=== PATIENT | male | born 1980 | race Caucasian/White ===

== ENCOUNTER 2016-10-18 20:57 | Emergency (ER) | payer SELFPAY ==
[2016-10-18] MEDS ORDERED: Ketorolac 10 MG Tab PO ONE (21:12)
--- NOTE | 2016-10-18 21:19 | EDM.PDOC ---
ED HPI GENERAL MEDICAL PROBLEM - General Chief Complaint: Neck Problem Stated Complaint: NECK PAIN Time Seen by Provider: 10/18/16 21:10 Source of Information: Reports: Patient History Limitations: Reports: No Limitations - History of Present Illness INITIAL COMMENTS - FREE TEXT/NARRATIVE: History of present illness: [35-year-old male comes in complaining of neck pain. Patient indicates he thinks he slept on his neck wrong or something and it became more painful over the last 24 hours.] Review of systems: As per history of present illness and below otherwise all systems reviewed and negative. Past medical history: As per history of present illness and as reviewed below otherwise noncontributory. Surgical history: As per history of present illness and as reviewed below otherwise noncontributory. Social history: No reported history of drug or alcohol abuse. Family history: As per history of present illness and as reviewed below otherwise noncontributory. Physical exam: HEENT: Atraumatic, normocephalic, pupils reactive, negative for conjunctival pallor or scleral icterus, mucous membranes moist, throat clear, sternal cleidomastoid tightness and tenderness as well as tight levator scapula on the left with exquisite tenderness, trachea midline. Lungs: Clear to auscultation, breath sounds equal bilaterally, chest nontender. Heart: S1S2, regular, negative for clicks, rubs, or JVD. Abdomen: Soft, nondistended, nontender. Negative for masses or hepatosplenomegaly. Negative for costovertebral tenderness. Pelvis: Stable nontender. Genitourinary: Deferred. Rectal: Deferred. Extremities: Atraumatic, negative for cords or calf pain. Neurovascular unremarkable. Neuro: Awake, alert, oriented. Cranial nerves II through XII unremarkable. Cerebellum unremarkable. Motor and sensory unremarkable throughout. Exam nonfocal. Diagnostics: [] Therapeutics: [] Impression: [Neck pain] Plan: [Norflex and Toradol here prescriptions for home] Definitive disposition and diagnosis as appropriate pending reevaluation and review of above. neck pain Pain Score (Numeric/FACES): 8 - Related Data Allergies Allergy/AdvReac Type Severity Reaction Status Date / Time No Known Allergies Allergy Verified 10/18/16 21:08 Home Meds: Home Meds Meloxicam 7.5 mg PO BID #30 tablet 10/18/16 [Rx] Orphenadrine [Norflex] 100 mg PO BID #28 tab.er 10/18/16 [Rx] ED ROS GENERAL - Review of Systems Review Of Systems: See Below (See history of present illness) ED EXAM, UPPER BACK/NECK PAIN - Physical Exam Exam: See Below (See history of present illness) Course - Vital Signs Last Recorded V/S: Last Vital Signs Temp 36.4 C 10/18/16 21:09 Pulse 88 10/18/16 21:09 Resp 18 10/18/16 21:09 BP 154/105 H 10/18/16 21:09 Pulse Ox 96 10/18/16 21:09 - Orders/Labs/Meds Orders: Active Orders 24 hr Category Date Time Status Orphenadrine [Norflex] Med 10/18/16 21:15 Once 60 mg IM ONETIME ONE Medication Orders Orphenadrine Citrate (Norflex) 60 mg IM ONETIME ONE Stop: 10/18/16 21:16 Meds: Medications Generic Name Dose Route Start Last Admin Trade Name Freq PRN Reason Stop Dose Admin Orphenadrine Citrate 60 mg 10/18/16 21:15 Norflex IM 10/18/16 21:16 ONETIME ONE Discontinued Medications Generic Name Dose Route Start Last Admin Trade Name Freq PRN Reason Stop Dose Admin Ketorolac Tromethamine 10 mg 10/18/16 21:12 Toradol PO 10/18/16 21:13 ONETIME ONE Departure - Departure Time of Disposition: 21:18 Disposition: Home, Self-Care 01 Condition: Good Clinical Impression: Neck pain - Discharge Information Prescriptions: Meloxicam 7.5 mg PO BID #30 tablet Orphenadrine [Norflex] 100 mg PO BID #28 tab.er Forms: ED Department Discharge Additional Instructions: The following information is given to patients seen in the emergency department who are being discharged to home. This information is to outline your options for follow-up care. We provide all patients seen in our emergency department with a follow-up referral. The need for follow-up, as well as the timing and circumstances, are variable depending upon the specifics of your emergency department visit. If you don't have a primary care physician on staff, we will provide you with a referral. We always advise you to contact your personal physician following an emergency department visit to inform them of the circumstance of the visit and for follow-up with them and/or the need for any referrals to a consulting specialist. The emergency department will also refer you to a specialist when appropriate. This referral assures that you have the opportunity for follow-up care with a specialist. All of these measure are taken in an effort to provide you with optimal care, which includes your follow-up. Under all circumstances we always encourage you to contact your private physician who remains a resource for coordinating your care. When calling for follow-up care, please make the office aware that this follow-up is from your recent emergency room visit. If for any reason you are refused follow-up, please contact the Emergency Department at and asked to speak to the emergency department charge nurse. Take medication as directed Follow-up with PCP 1-2 days Return to ED as needed as discussed Primary Care [address] [place] [id number] - My Orders Last 24 Hours: My Active Orders 10/18/16 21:15 Orphenadrine [Norflex] 60 mg IM ONETIME ONE - Assessment/Plan Last 24 Hours: My Active Orders 10/18/16 21:15 Orphenadrine [Norflex] 60 mg IM ONETIME ONE
[2016-10-18 21:43] VITALS: BP 146/85
== END 2016-10-18 21:41 | disposition home or self-care (01) ==
LOC: MW.ED 20:57
DX: M54.2 Cervicalgia (principal)
CPT/HCPCS: 96372; 99283; A9270; J2360

== ENCOUNTER 2017-05-18 08:07 | Emergency (ER) | payer OTHER ==
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
[2017-05-18] MEDS ORDERED: Albuterol/Ipratropium 3.0-0.5 MG/3 ML Neb Soln NEB ONE (08:34)
[2017-05-18] MEDS ORDERED: Ibuprofen 600 MG Tab PO ONE (08:37)
[2017-05-18] MEDS ORDERED: Sodium Chloride 0.9% 2.5 ML Syringe FLUSH PRN (08:38)
[2017-05-18] MEDS ORDERED: Sodium Chloride 0.9% 10 ML Syringe FLUSH PRN (08:38)
[2017-05-18] MEDS ORDERED: Ondansetron 4 MG Tab.DIS PO ONE (08:40)
[2017-05-18 09:46] LABS: CHLORIDE,CL 103 mmol/L (98-107); SODIUM,NA 139 mmol/L (136-148)
--- NOTE | 2017-05-18 10:05 | CR ---
EXAMINATION: Two-view chest (PA and Lateral views). HISTORY: Shortness of breath. FINDINGS: The trachea is midline. The cardiomediastinal silhouette is within normal limits. No pulmonary infilt rates, effusions or pneumothorax. Osseous structures appear unremarkable. IMPRESSION: No acute cardiopulmonary process.
[2017-05-18 10:37] VITALS: BP 136/89
== END 2017-05-18 10:50 | disposition home or self-care (01) ==
LOC: MW.ED 08:07
DX: J10.1 Influenza due to other identified influenza virus with other respiratory manifestations (principal); F17.210 Nicotine dependence, cigarettes, uncomplicated
CPT/HCPCS: 36415; 71046; 80053; 85025; 87040; 87804; 99284; A9270; 99283

== ENCOUNTER 2017-06-06 12:10 | Observation (INO) | payer OTHER ==
[2017-06-06] MEDS ORDERED: Sodium Chloride 0.9% 1,000 ML IV ONE (12:48)
[2017-06-06] MEDS ORDERED: Ketorolac 30 MG/ML SDV IVPUSH ONE (12:59)
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
[2017-06-06 13:53] LABS: CHLORIDE,CL 98 mmol/L (98-107); SODIUM,NA 134 mmol/L (136-148)
[2017-06-06] MEDS ORDERED: Iopamidol 755 MG/ML 200 ML Multipack Bottle IVPUSH STA (14:11)
--- NOTE | 2017-06-06 14:28 | CT ---
CT of the abdomen and pelvis with contrast. HISTORY: Abscess TECHNIQUE: Axial CT images were obtained of the abdomen and pelvis following administration of 100 mL of Isovue-370 in the right antecubital fossa without complication. Coronal and sagittal reconstructi ons obtained. FINDINGS: The lung bases are clear, no pleural effusion. Mild atelectasis within the right middle lobe. The liver, spleen, adrenal glands, and pancreas appear normal. The gallbladder is normal. No bulky re troperitoneal lymphadenopathy or abdominal ascites. The kidneys enhance and function symmetrically without evidence of obstructive uropathy. The visualized large and small bowel are normal in caliber without evidence of obstruction. No focal pericolonic formation or stranding. The appendix is enlarged measuring up to 1.5 cm in diameter. Ther e is mild enhancement of the distal appendiceal scott. No significant periappendiceal stranding or fl uid noted. No bulky pelvic lymphadenopathy or free pelvic fluid. Urinary bladder is normal. There is a tubular shaped abscess along the right gluteal fold measuring 4.2 x 2 cm extending to the rectum. Overlying cellulitis is noted. IMPRESSION: 1. There is a 4.2 x 2 cm right perirectal abscess. Mild overlying edema/cellulitis. 2. The appendix is enlarged and enhancing without significant periappendiceal stranding. Correlate cl inically for appendicitis.
[2017-06-06] MEDS ORDERED: metroNIDAZOLE/Normal Saline 500 MG in Premix Bag 1 BAG IV ONE ×2 (15:04→16:25)
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
[2017-06-06] MEDS ORDERED: Lactated Ringers 1,000 ML IV SCH ×2 (17:30→19:30)
[2017-06-06] MEDS: Piperacillin/Tazobactam 3.375 GM in Sodium Chloride 0.9% 50 ML IV SCH ×2 (17:40→23:08)
[2017-06-06] MEDS ORDERED: Morphine 4 MG/ML Syringe IVPUSH PRN (18:05)
[2017-06-06] MEDS ORDERED: Acetaminophen 325 MG Tab PO PRN (18:06)
[2017-06-06] MEDS ORDERED: Ondansetron 4 MG/2 ML SDV IVPUSH PRN (18:06)
[2017-06-06] MEDS ORDERED: Propofol 200 MG/20 ML SDV ONE (18:07)
[2017-06-06] MEDS ORDERED: fentaNYL 250 MCG/5 ML SDV ONE (18:08)
[2017-06-06] MEDS ORDERED: Lidocaine 2% 5 ML SDV ONE (18:09)
[2017-06-06] MEDS ORDERED: diphenhydrAMINE 50 MG/ML SDV ONE (18:36)
[2017-06-06] MEDS ORDERED: Ondansetron 4 MG/2 ML SDV ONE (18:36)
[2017-06-06] MEDS ORDERED: fentaNYL 100 MCG/2 ML SDV ONE (18:52)
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
[2017-06-06] MEDS ORDERED: Polyethylene Glycol 3350 Powder 17 GM Packet PO PRN (19:16)
[2017-06-06] MEDS ORDERED: Famotidine 20 MG Tab PO PRN (19:16)
[2017-06-06] MEDS ORDERED: Promethazine 25 MG/ML SDV IM PRN (19:16)
--- NOTE | 2017-06-06 19:18 | PCM.OPNOTE ---
- General Post-Op/Procedure Note Date of Surgery/Procedure: 06/06/17 Operative Procedure(s): Incision and drainage of right perirectal abscess Pre Op Diagnosis: Right perirectal abscess Post-Op Diagnosis: Same Anesthesia Technique: General LMA (ASA IIE) Primary Surgeon: Sridhar Zamora Grip Boss: Gordon Wallace Fluid Replacement, Intraop: 400 EBL in mLs: 75 Surgical Drain/Tube Type: [place] Condition: Stable Free Text/Narrative:: Dictation [id number] CPT CODE 31193
[2017-06-06] MEDS: fentaNYL 100 MCG/2 ML SDV IVPUSH PRN ×4 (19:48→20:26)
[2017-06-06] MEDS ORDERED: Albuterol 0.083% 2.5 MG/3 ML Neb Soln NEB ONE (19:50)
[2017-06-06] MEDS ORDERED: Albuterol 0.5% 2.5 MG/0.5 ML Neb Soln NEB ONE (20:00)
--- NOTE | 2017-06-06 20:21 | PCM.POSTAN ---
POST ANESTHESIA ASSESSMENT - MENTAL STATUS Mental Status: Alert, Oriented - VITAL SIGNS Pulse Rate: 104 SaO2: 93 Resp Rate: 20 Blood Pressure: 126/64 Temperature: 37 C - RESPIRATORY Respiratory Status: Respiratory Rate WNL, Airway Patent, O2 Saturation Stable, Supplemental Oxygen (albuterol neb in pacu), Wheezing (PATRICK. Pt coughing frequently in pacu) - CARDIOVASCULAR CV Status: Pulse Rate WNL, Blood Pressure Stable - GASTROINTESTINAL GI Status: No Symptoms - PAIN Pain Score: 5 - POST OP HYDRATION Hydration Status: Adequate & Stable
--- NOTE | 2017-06-06 20:47 | OR ---
SURGEON: Sridhar Zamora M.D. DATE OF PROCEDURE: 06/06/2017 OPERATION PERFORMED: Incision and drainage of right perirectal abscess. MANAGER IT TRAINING: Dr. Wallace, PGY3. ANESTHESIA: General LMA. ASA CLASSIFICATION: IIE. PREOPERATIVE DIAGNOSIS: Right perirectal abscess. POSTOPERATIVE DIAGNOSIS: Right perirectal abscess. ESTIMATED BLOOD LOSS: 75 mL. INTRAOPERATIVE FLUID REPLACEMENT: 400 mL of crystalloid. DESCRIPTION OF PROCEDURE: The patient was taken to the operating room and placed in the operating table in the supine position. Time-out was called for appropriate identification of the patient and procedure. Following satisfactory attainment of general anesthesia with placement of an LMA, the patient was now placed in the [facility] and the perineum exposed. The surgical site was prepped with Betadine solution and paint. The skin incision was made directly over the fluctuant mass on the right perirectal region. Dissection was carried into the subcutaneous tissues ultimately entering the abscess cavity. Aerobic and anaerobic cultures were obtained and sent for culture, sensitivity, and Gram stain. The wound was irrigated with several 100 mL of sterile saline solution. All fluid was aspirated. Bleeding was controlled with the use of electrocautery. Once the wound had been satisfactorily irrigated, all loculations broken up. A Adrianna drains were placed into the abscess cavities and secured with 2-0 nylon sutures. The wound was then dressed with fluffs and mesh panties. The patient tolerated the procedure well. Following emergence from anesthesia and extubation, he was taken to recovery room in satisfactory condition. WON / ANIA /[id number]
[2017-06-06] MEDS: Acetaminophen/HYDROcodone 325-5 MG Tab PO PRN (21:22)
[2017-06-06] MEDS: Ibuprofen 400 MG Tab PO PRN (23:36)
[2017-06-07] MEDS: Morphine 4 MG/ML Syringe IVPUSH PRN ×2 (00:57→06:13)
[2017-06-07] MEDS: Piperacillin/Tazobactam 3.375 GM in Sodium Chloride 0.9% 50 ML IV SCH ×2 (05:49→12:31)
[2017-06-07 06:17] LABS: CHLORIDE,CL 105 mmol/L (98-107); SODIUM,NA 138 mmol/L (136-148)
--- NOTE | 2017-06-07 08:11 | PCM.SURGPN ---
<Gordon Wallace - Last Filed: 06/07/17 08:06> - General Info Date of Service: 06/07/17 Date of Surgery/Procedure: 06/06/17 POD#: 1 Post-Op Diagnosis: perirectal abscess Functional Status: Reports: Pain Controlled - Review of Systems General: Reports: No Symptoms. Denies: Fever, Chills HEENT: Reports: No Symptoms Pulmonary: Reports: Cough (had small bile vomitus postop and coughed alot overnight. States he cleared alot of sputum with coughing and is doing well this morning. ), Sputum. Denies: Shortness of Breath, Pleuritic Chest Pain, Wheezing Cardiovascular: Reports: No Symptoms Gastrointestinal: Reports: No Symptoms Genitourinary: Reports: No Symptoms Musculoskeletal: Reports: No Symptoms Skin: Reports: Other (wound is sore, but pain is controlled adequately. ) Neurological: Reports: No Symptoms Psychiatric: Reports: No Symptoms - Patient Data Vitals - Most Recent: Last Vital Signs Temp 36.1 C 06/07/17 04:13 Pulse 70 06/07/17 04:13 Resp 18 06/07/17 04:13 BP 104/57 L 06/07/17 04:13 Pulse Ox 99 06/07/17 04:13 Weight - Most Recent: 261 lb 14.546 oz I&O - Last 24 Hours: Intake & Output 06/06/17 06/07/17 06/07/17 22:59 06:59 14:59 Intake Total 1300 1340 Output Total 600 Balance 1300 740 Lab Results Last 24 Hrs: Laboratory Results - last 24 hr 06/06/17 06/06/17 06/07/17 Range/Units 13:05 13:05 05:05 WBC 12.85 H (4.0-11.0) K/uL RBC 4.41 L (4.50-5.90) M/uL Hgb 14.0 (13.0-17.0) g/dL Hct 39.7 (38.0-50.0) % MCV 90.0 (80.0-98.0) fL MCH 31.7 (27.0-32.0) pg MCHC 35.3 (31.0-37.0) g/dL RDW Std Deviation 41.5 (28.0-62.0) fl RDW Coeff of Nuvia 13 (11.0-15.0) % Plt Count 318 (150-400) K/uL MPV 9.40 (7.40-12.00) fL Add Manual Diff YES Neutrophils % (Manual) 73 (48.0-80.0) % Band Neutrophils % 1 % Lymphocytes % (Manual) 20 (16.0-40.0) % Monocytes % (Manual) 5 (0.0-15.0) % Eosinophils % (Manual) 1 (0.0-7.0) % Nucleated RBC % 0.0 /100WBC Absolute Seg Neuts 9.4 H (1.4-5.7) Band Neutrophils # 0.1 Lymphocytes # (Manual) 2.6 H (0.6-2.4) Monocytes # (Manual) 0.6 (0.0-0.8) Eosinophils # (Manual) 0.1 (0.0-0.7) Nucleated RBCs # 0 K/uL Sodium 134 L 138 (136-148) mmol/L Potassium 3.5 4.1 (3.5-5.1) mmol/L Chloride 98 105 (98-107) mmol/L Carbon Dioxide 28.6 25.7 (21.0-32.0) mmol/L BUN 8 10 (7.0-18.0) mg/dL Creatinine 1.0 1.0 (0.8-1.3) mg/dL Est Cr Clr Drug Dosing 114.24 114.24 mL/min Estimated GFR (MDRD) > 60.0 > 60.0 ml/min Glucose 98 101 (74-106) mg/dL Calcium 8.6 8.2 L (8.5-10.1) mg/dL Total Bilirubin 0.6 (0.2-1.0) mg/dL AST 16 (15-37) IU/L ALT 20 (14-63) IU/L Alkaline Phosphatase 69 (46-116) U/L Total Protein 7.7 (6.4-8.2) g/dL Albumin 3.5 (3.4-5.0) g/dL Globulin 4.2 H (2.0-3.5) g/dL Albumin/Globulin Ratio 0.8 L (1.3-2.8) Mello Results Last 24 Hrs: Microbiology 06/06/17 18:52 Gram Stain - Preliminary Perirectal Med Orders - Current: Current Medications Acetaminophen (Tylenol) 650 mg PO Q4H PRN PRN Reason: Pain Last Admin: 06/06/17 22:28 Dose: 650 mg Hydrocodone Bitart/Acetaminophen ([place] 325-5 Mg) 1 - 2 tab PO Q4H PRN PRN Reason: Pain Last Admin: 06/06/17 21:22 Dose: 2 tab Famotidine (Pepcid) 20 mg PO BID PRN PRN Reason: Heartburn Last Admin: 06/06/17 22:28 Dose: 20 mg Lactated Ringer's (Ringers, Lactated) 1,000 mls @ 100 mls/hr IV ASDIRECTED [facility] Last Admin: 06/06/17 17:40 Dose: 100 mls/hr Piperacillin Sod/Tazobactam (Sod 3.375 gm/ Sodium Chloride) 50 mls @ 100 mls/ hr IV Q6H [facility] Last Admin: 06/07/17 05:49 Dose: 100 mls/hr Vancomycin HCl 1,500 mg/ (Sodium Chloride) 500 mls @ 250 mls/hr IV Q8H [facility] Last Admin: 06/07/17 07:31 Dose: Not Given Lactated Ringer's (Ringers, Lactated) 1,000 mls @ 125 mls/hr IV ASDIRECTED [facility] Ibuprofen (Motrin) 400 mg PO Q6H PRN PRN Reason: Pain Last Admin: 06/06/17 23:36 Dose: 400 mg Morphine Sulfate (Morphine) 2 mg IVPUSH Q2H PRN PRN Reason: severe pain (7-10/10) Last Admin: 06/07/17 06:13 Dose: 2 mg Ondansetron HCl (Zofran) 4 mg IVPUSH Q4H PRN PRN Reason: Nausea Polyethylene Glycol (Miralax) 17 gm PO DAILY PRN PRN Reason: Constipation Promethazine HCl (Phenergan) 25 mg IM Q6H PRN PRN Reason: Nausea Vancomycin HCl (Pharmacy To Dose - Vancomycin) 1 dose .XX ASDIRECTED [facility] Discontinued Medications Albuterol (Proventil) 2.5 mg NEB QIDRT ONE Stop: 06/06/17 20:01 Last Admin: 06/06/17 20:59 Dose: Not Given Albuterol (Proventil Neb Soln) 2.5 mg NEB ONETIME ONE Stop: 06/06/17 19:51 Last Admin: 06/06/17 20:08 Dose: 2.5 mg Diphenhydramine HCl (Benadryl) Confirm Administered Dose 50 mg .ROUTE .STK-MED ONE Stop: 06/06/17 18:37 Fentanyl (Sublimaze) Confirm Administered Dose 250 mcg .ROUTE .STK-MED ONE Stop: 06/06/17 18:09 Fentanyl (Sublimaze) Confirm Administered Dose 100 mcg .ROUTE .STK-MED ONE Stop: 06/06/17 18:53 Fentanyl (Sublimaze) 50 mcg IVPUSH Q5M PRN PRN Reason: Pain (severe 7-10) Stop: 06/06/17 21:00 Last Admin: 06/06/17 20:26 Dose: 50 mcg Sodium Chloride (Normal Saline) 1,000 mls @ 999 mls/hr IV STAT ONE Stop: 06/06/17 13:48 Last Admin: 06/06/17 13:05 Dose: 999 mls/hr Metronidazole 500 mg/ Premix 100 mls @ 100 mls/hr IV ONETIME ONE Stop: 06/06/17 16:03 Last Admin: 06/06/17 17:36 Dose: Not Given Vancomycin HCl 1 gm/ Sodium (Chloride) 250 mls @ 250 mls/hr IV ONETIME ONE Stop: 06/06/17 16:03 Last Admin: 06/06/17 17:36 Dose: Not Given Vancomycin HCl 1,000 mg/ (Dextrose/Water) 250 mls @ 167 mls/hr IV ONETIME ONE Stop: 06/06/17 17:51 Last Admin: 06/06/17 17:36 Dose: Not Given Metronidazole 500 mg/ Premix 100 mls @ 100 mls/hr IV ONETIME ONE Stop: 06/06/17 17:24 Last Admin: 06/06/17 17:36 Dose: Not Given Vancomycin HCl 1 gm/ Sodium (Chloride) 250 mls @ 167 mls/hr IV ONETIME ONE Stop: 06/06/17 19:29 Vancomycin HCl 1,500 mg/ (Sodium Chloride) 500 mls @ 250 mls/hr IV Q8H [facility] Last Admin: 06/07/17 03:10 Dose: 250 mls/hr Iopamidol (Isovue Multipack-370 (76%)) 100 ml IVPUSH ONETIME STA Stop: 06/06/17 14:12 Last Admin: 06/06/17 14:17 Dose: 100 ml Ketorolac Tromethamine (Toradol) 30 mg IVPUSH ONETIME ONE Stop: 06/06/17 13:00 Last Admin: 06/06/17 13:09 Dose: 30 mg Lidocaine (Xylocaine-Mpf 2%) Confirm Administered Dose 5 ml .ROUTE .STK-MED ONE Stop: 06/06/17 18:10 Morphine Sulfate (Morphine) 4 mg IVPUSH Q4H PRN PRN Reason: severe pain (7-10/10) Ondansetron HCl (Zofran) Confirm Administered Dose 4 mg .ROUTE .STK-MED ONE Stop: 06/06/17 18:37 Propofol (Diprivan 20 Ml) Confirm Administered Dose 200 mg .ROUTE .STK-MED ONE Stop: 06/06/17 18:08 - Exam Wound/Incisions: Drainage, Erythema Improving, Other ([place] drains in place in right buttock, draining serosanguinous material. Cellulitis/erythema has decreased markedly, as has the induration of the tissue. No purulent drainage noted. Wound is improved and as expected at this point in time. ) General: Alert, Oriented, Cooperative Lungs: Clear to Auscultation, Normal Respiratory Effort Cardiovascular: Regular Rate, Regular Rhythm Extremities: Normal Inspection Skin: Warm, Dry Psy/Mental Status: Alert, Normal Affect, Normal Mood - Problem List & Annotations (1) Perirectal abscess SNOMED Code(s): 72622300 Code(s): K61.1 - RECTAL ABSCESS Status: Resolved Priority: High Current Visit: Yes - Problem List Review Problem List Initiated/Reviewed/Updated: Yes - My Orders Last 24 Hours: Active Orders 24 hr Category Date Time Status Patient Status [ADT] Stat ADT 06/06/17 17:49 Active Bradycardia-Neuroaxis [facility] [RC] ROUTINE Care 06/06/17 18:59 Active Hypertension-Neuroaxis [facility] [RC] ROUTINE Care 06/06/17 18:59 Active Hypotension-Neuroaxis [facility] [RC] ROUTINE Care 06/06/17 18:59 Active Intake and Output [RC] Q12HR Care 06/06/17 17:51 Active May Shower [RC] ASDIRECTED Care 06/06/17 19:16 Active Notify Provider Consults [RC] ASDIRECTED Care 06/06/17 15:46 Active Oxygen Therapy [RC] ASDIRECTED Care 06/06/17 18:59 Active Oxygen Therapy [RC] PRN Care 06/06/17 17:51 Active Oxygen Therapy [RC] PRN Care 06/06/17 19:16 Active RT Aerosol Therapy [RC] ASDIRECTED Care 06/06/17 19:53 Active RT Incentive Spirometry [RC] ASDIRECTED Care 06/06/17 19:40 Active Up ad Aileen [RC] ASDIRECTED Care 06/06/17 17:51 Active Vital Signs [RC] PER UNIT ROUTINE Care 06/06/17 19:16 Active Vital Signs [RC] Q4H Care 06/06/17 17:50 Active Wound Care [RC] ASDIRECTED Care 06/06/17 19:16 Active Consult to Physician [CONS] Stat Cons 06/06/17 15:46 Active Regular Diet [DIET] Diet 06/06/17 Dinner Active BMP [BASIC METABOLIC PANEL,BMP] [CHEM] AM Lab 06/08/17 05:11 Ordered CBC WITH AUTO DIFF [HEME] AM Lab 06/08/17 05:11 Ordered CBC WITH AUTO DIFF [HEME] AM Lab 06/09/17 05:11 Ordered CBC WITH AUTO DIFF [HEME] Routine Lab 06/07/17 05:05 Received CULTURE ANAEROBIC [RM] Routine Lab 06/06/17 18:52 Results CULTURE BLOOD [BC] Stat Lab 06/06/17 13:59 Received CULTURE BLOOD [BC] Stat Lab 06/06/17 14:20 Received CULTURE STOOL + CAMPY+SHIGATOX [RM] Stat Lab 06/06/17 12:48 Ordered CULTURE WOUND [RM] Routine Lab 06/06/17 18:52 Results GRAM STAIN [RM] Routine Lab 06/06/17 18:52 Results VANCOMYCIN TROUGH [CHEM] Routine Lab 06/07/17 17:00 Ordered Acetaminophen [Tylenol] Med 06/06/17 18:06 Active 650 mg PO Q4H PRN Acetaminophen/HYDROcodone [[place] 325-5 MG] Med 06/06/17 18:05 Active 1 - 2 tab PO Q4H PRN Famotidine [Pepcid] Med 06/06/17 19:16 Active 20 mg PO BID PRN Ibuprofen [Motrin] Med 06/06/17 18:06 Active 400 mg PO Q6H PRN Lactated Ringers [Ringers, Lactated] 1,000 ml Med 06/06/17 17:30 Active IV ASDIRECTED Lactated Ringers [Ringers, Lactated] 1,000 ml Med 06/06/17 19:30 Active IV ASDIRECTED Morphine Med 06/06/17 19:26 Active 2 mg IVPUSH Q2H PRN Ondansetron [Zofran] Med 06/06/17 18:06 Active 4 mg IVPUSH Q4H PRN Piperacillin/Tazobactam [Piperacil-Tazobact] 3.375 gm Med 06/06/17 17:30 Active Sodium Chloride 0.9% [Normal Saline] 50 ml IV Q6H Polyethylene Glycol 3350 [MiraLAX] Med 06/06/17 19:16 Active 17 gm PO DAILY PRN Promethazine [Phenergan] Med 06/06/17 19:16 Active 25 mg IM Q6H PRN Vancomycin 1,500 mg Med 06/06/17 18:00 Active Sodium Chloride 0.9% [Normal Saline] 500 ml IV Q8H Vancomycin Pharmacy to Dose [Pharmacy to Dose - Med 06/06/17 17:30 Active Vancomycin] 1 dose .XX ASDIRECTED Blood Culture x2 Reflex Set [OM.PC] Stat Oth 06/06/17 13:21 Ordered Peripheral IV Discontinue [OM.PC] Per Unit Routine Oth 06/06/17 19:21 Ordered Sequential Compression Device [OM.PC] Per Unit Routine Oth 06/06/17 17:51 Ordered Resuscitation Status Routine Resus Stat 06/06/17 17:47 Ordered Medication Orders Acetaminophen (Tylenol) 650 mg PO Q4H PRN PRN Reason: Pain Last Admin: 06/06/17 22:28 Dose: 650 mg Hydrocodone Bitart/Acetaminophen ([place] 325-5 Mg) 1 - 2 tab PO Q4H PRN PRN Reason: Pain Last Admin: 06/06/17 21:22 Dose: 2 tab Famotidine (Pepcid) 20 mg PO BID PRN PRN Reason: Heartburn Last Admin: 06/06/17 22:28 Dose: 20 mg Lactated Ringer's (Ringers, Lactated) 1,000 mls @ 100 mls/hr IV ASDIRECTED [facility] Last Admin: 06/06/17 17:40 Dose: 100 mls/hr Piperacillin Sod/Tazobactam (Sod 3.375 gm/ Sodium Chloride) 50 mls @ 100 mls/ hr IV Q6H [facility] Last Admin: 06/07/17 05:49 Dose: 100 mls/hr Infusion: 06/06/17 23:38 Dose: 100 mls/hr Admin: 06/06/17 23:08 Dose: 100 mls/hr Infusion: 06/06/17 18:10 Dose: 100 mls/hr Admin: 06/06/17 17:40 Dose: 100 mls/hr Vancomycin HCl 1,500 mg/ (Sodium Chloride) 500 mls @ 250 mls/hr IV Q8H [facility] Last Admin: 06/07/17 07:31 Dose: Not Given Admin: 06/06/17 20:58 Dose: Lactated Ringer's (Ringers, Lactated) 1,000 mls @ 125 mls/hr IV ASDIRECTED [facility] Ibuprofen (Motrin) 400 mg PO Q6H PRN PRN Reason: Pain Last Admin: 06/06/17 23:36 Dose: 400 mg Morphine Sulfate (Morphine) 2 mg IVPUSH Q2H PRN PRN Reason: severe pain (7-10/10) Last Admin: 06/07/17 06:13 Dose: 2 mg Admin: 06/07/17 00:57 Dose: 2 mg Ondansetron HCl (Zofran) 4 mg IVPUSH Q4H PRN PRN Reason: Nausea Polyethylene Glycol (Miralax) 17 gm PO DAILY PRN PRN Reason: Constipation Promethazine HCl (Phenergan) 25 mg IM Q6H PRN PRN Reason: Nausea Vancomycin HCl (Pharmacy To Dose - Vancomycin) 1 dose .XX ASDIRECTED [facility] - Assessment Assessment (Free Text/Narrative):: POD #1 s/p I&D of perirectal abscess. Doing very well. No further respiratory issues. Pain is controlled, and wound has improved appropriately. No new issues or concerns at this juncture. - Plan Plan (Free Text/Narrative):: Ok to discharge patient home today from surgical perspective. Recommend 7 days of PO cipro and flagyl, as well as PO pain medication PRN. Follow up with Dr. Zamora in clinic on Monday, 4/3, for wound check and likely drain removal. Patient may shower and/or take Sitz baths, as desired for cleanliness and comfort. Ok to wash gently with mild soap. He may cover his wound with gauze as desired, for drainage, but he may also leave it open to air, if he prefers. <NoahSridhar L - Last Filed: 06/07/17 09:10> - Patient Data Vitals - Most Recent: Last Vital Signs Temp 99.1 F 06/07/17 08:48 Pulse 104 H 06/07/17 08:48 Resp 18 06/07/17 08:48 BP 126/64 06/07/17 08:48 Pulse Ox 93 L 06/07/17 08:00 I&O - Last 24 Hours: Intake & Output 06/06/17 06/07/17 06/07/17 19:59 03:59 11:59 Intake Total 963 168 0250 Output Total 600 Balance 400 950 690 Lab Results Last 24 Hrs: Laboratory Results - last 24 hr 06/06/17 06/06/17 06/07/17 Range/Units 13:05 13:05 05:05 WBC 12.85 H (4.0-11.0) K/uL RBC 4.41 L (4.50-5.90) M/uL Hgb 14.0 (13.0-17.0) g/dL Hct 39.7 (38.0-50.0) % MCV 90.0 (80.0-98.0) fL MCH 31.7 (27.0-32.0) pg MCHC 35.3 (31.0-37.0) g/dL RDW Std Deviation 41.5 (28.0-62.0) fl RDW Coeff of Nuvia 13 (11.0-15.0) % Plt Count 318 (150-400) K/uL MPV 9.40 (7.40-12.00) fL Neut % (Auto) (48.0-80.0) % Lymph % (Auto) (16.0-40.0) % [place] % (Auto) (0.0-15.0) % Eos % (Auto) (0.0-7.0) % Baso % (Auto) (0.0-1.5) % Neut # (Auto) (1.4-5.7) K/uL Lymph # (Auto) (0.6-2.4) K/uL [place] # (Auto) (0.0-0.8) K/uL Eos # (Auto) (0.0-0.7) K/uL Baso # (Auto) (0.0-0.1) K/uL Add Manual Diff YES Neutrophils % (Manual) 73 (48.0-80.0) % Band Neutrophils % 1 % Lymphocytes % (Manual) 20 (16.0-40.0) % Monocytes % (Manual) 5 (0.0-15.0) % Eosinophils % (Manual) 1 (0.0-7.0) % Nucleated RBC % 0.0 /100WBC Absolute Seg Neuts 9.4 H (1.4-5.7) Band Neutrophils # 0.1 Lymphocytes # (Manual) 2.6 H (0.6-2.4) Monocytes # (Manual) 0.6 (0.0-0.8) Eosinophils # (Manual) 0.1 (0.0-0.7) Nucleated RBCs # 0 K/uL Sodium 134 L 138 (136-148) mmol/L Potassium 3.5 4.1 (3.5-5.1) mmol/L Chloride 98 105 (98-107) mmol/L Carbon Dioxide 28.6 25.7 (21.0-32.0) mmol/L BUN 8 10 (7.0-18.0) mg/dL Creatinine 1.0 1.0 (0.8-1.3) mg/dL Est Cr Clr Drug Dosing 114.24 114.24 mL/min Estimated GFR (MDRD) > 60.0 > 60.0 ml/min Glucose 98 101 (74-106) mg/dL Calcium 8.6 8.2 L (8.5-10.1) mg/dL Total Bilirubin 0.6 (0.2-1.0) mg/dL AST 16 (15-37) IU/L ALT 20 (14-63) IU/L Alkaline Phosphatase 69 (46-116) U/L Total Protein 7.7 (6.4-8.2) g/dL Albumin 3.5 (3.4-5.0) g/dL Globulin 4.2 H (2.0-3.5) g/dL Albumin/Globulin Ratio 0.8 L (1.3-2.8) 06/07/17 Range/Units 05:05 WBC 14.99 H (4.0-11.0) K/uL RBC 4.14 L (4.50-5.90) M/uL Hgb 12.9 L (13.0-17.0) g/dL Hct 38.3 (38.0-50.0) % MCV 92.5 (80.0-98.0) fL MCH 31.2 (27.0-32.0) pg MCHC 33.7 (31.0-37.0) g/dL RDW Std Deviation 43.1 (28.0-62.0) fl RDW Coeff of Nuvia 13 (11.0-15.0) % Plt Count 279 (150-400) K/uL MPV 10.00 (7.40-12.00) fL Neut % (Auto) 74.5 (48.0-80.0) % Lymph % (Auto) 13.3 L (16.0-40.0) % [place] % (Auto) 11.3 (0.0-15.0) % Eos % (Auto) 0.7 (0.0-7.0) % Baso % (Auto) 0.2 (0.0-1.5) % Neut # (Auto) 11.2 H (1.4-5.7) K/uL Lymph # (Auto) 2.0 (0.6-2.4) K/uL [place] # (Auto) 1.7 H (0.0-0.8) K/uL Eos # (Auto) 0.1 (0.0-0.7) K/uL Baso # (Auto) 0.0 (0.0-0.1) K/uL Add Manual Diff Neutrophils % (Manual) (48.0-80.0) % Band Neutrophils % % Lymphocytes % (Manual) (16.0-40.0) % Monocytes % (Manual) (0.0-15.0) % Eosinophils % (Manual) (0.0-7.0) % Nucleated RBC % 0.0 /100WBC Absolute Seg Neuts (1.4-5.7) Band Neutrophils # Lymphocytes # (Manual) (0.6-2.4) Monocytes # (Manual) (0.0-0.8) Eosinophils # (Manual) (0.0-0.7) Nucleated RBCs # 0 K/uL Sodium (136-148) mmol/L Potassium (3.5-5.1) mmol/L Chloride (98-107) mmol/L Carbon Dioxide (21.0-32.0) mmol/L BUN (7.0-18.0) mg/dL Creatinine (0.8-1.3) mg/dL Est Cr Clr Drug Dosing mL/min Estimated GFR (MDRD) ml/min Glucose (74-106) mg/dL Calcium (8.5-10.1) mg/dL Total Bilirubin (0.2-1.0) mg/dL AST (15-37) IU/L ALT (14-63) IU/L Alkaline Phosphatase (46-116) U/L Total Protein (6.4-8.2) g/dL Albumin (3.4-5.0) g/dL Globulin (2.0-3.5) g/dL Albumin/Globulin Ratio (1.3-2.8) Mello Results Last 24 Hrs: Microbiology 06/06/17 18:52 Gram Stain - Preliminary Perirectal Med Orders - Current: Current Medications Acetaminophen (Tylenol) 650 mg PO Q4H PRN PRN Reason: Pain Last Admin: 06/06/17 22:28 Dose: 650 mg Hydrocodone Bitart/Acetaminophen ([place] 325-5 Mg) 1 - 2 tab PO Q4H PRN PRN Reason: Pain Last Admin: 06/07/17 08:28 Dose: 2 tab Famotidine (Pepcid) 20 mg PO BID PRN PRN Reason: Heartburn Last Admin: 06/06/17 22:28 Dose: 20 mg Lactated Ringer's (Ringers, Lactated) 1,000 mls @ 100 mls/hr IV ASDIRECTED [facility] Last Admin: 06/06/17 17:40 Dose: 100 mls/hr Piperacillin Sod/Tazobactam (Sod 3.375 gm/ Sodium Chloride) 50 mls @ 100 mls/ hr IV Q6H [facility] Last Admin: 06/07/17 05:49 Dose: 100 mls/hr Vancomycin HCl 1,500 mg/ (Sodium Chloride) 500 mls @ 250 mls/hr IV Q8H [facility] Last Admin: 06/07/17 07:31 Dose: Not Given Lactated Ringer's (Ringers, Lactated) 1,000 mls @ 125 mls/hr IV ASDIRECTED [facility] Ibuprofen (Motrin) 400 mg PO Q6H PRN PRN Reason: Pain Last Admin: 06/06/17 23:36 Dose: 400 mg Morphine Sulfate (Morphine) 2 mg IVPUSH Q2H PRN PRN Reason: severe pain (7-10/10) Last Admin: 06/07/17 06:13 Dose: 2 mg Ondansetron HCl (Zofran) 4 mg IVPUSH Q4H PRN PRN Reason: Nausea Polyethylene Glycol (Miralax) 17 gm PO DAILY PRN PRN Reason: Constipation Promethazine HCl (Phenergan) 25 mg IM Q6H PRN PRN Reason: Nausea Vancomycin HCl (Pharmacy To Dose - Vancomycin) 1 dose .XX ASDIRECTED [facility] Discontinued Medications Albuterol (Proventil) 2.5 mg NEB QIDRT ONE Stop: 06/06/17 20:01 Last Admin: 06/06/17 20:59 Dose: Not Given Albuterol (Proventil Neb Soln) 2.5 mg NEB ONETIME ONE Stop: 06/06/17 19:51 Last Admin: 06/06/17 20:08 Dose: 2.5 mg Diphenhydramine HCl (Benadryl) Confirm Administered Dose 50 mg .ROUTE .STK-MED ONE Stop: 06/06/17 18:37 Fentanyl (Sublimaze) Confirm Administered Dose 250 mcg .ROUTE .STK-MED ONE Stop: 06/06/17 18:09 Fentanyl (Sublimaze) Confirm Administered Dose 100 mcg .ROUTE .STK-MED ONE Stop: 06/06/17 18:53 Fentanyl (Sublimaze) 50 mcg IVPUSH Q5M PRN PRN Reason: Pain (severe 7-10) Stop: 06/06/17 21:00 Last Admin: 06/06/17 20:26 Dose: 50 mcg Sodium Chloride (Normal Saline) 1,000 mls @ 999 mls/hr IV STAT ONE Stop: 06/06/17 13:48 Last Admin: 06/06/17 13:05 Dose: 999 mls/hr Metronidazole 500 mg/ Premix 100 mls @ 100 mls/hr IV ONETIME ONE Stop: 06/06/17 16:03 Last Admin: 06/06/17 17:36 Dose: Not Given Vancomycin HCl 1 gm/ Sodium (Chloride) 250 mls @ 250 mls/hr IV ONETIME ONE Stop: 06/06/17 16:03 Last Admin: 06/06/17 17:36 Dose: Not Given Vancomycin HCl 1,000 mg/ (Dextrose/Water) 250 mls @ 167 mls/hr IV ONETIME ONE Stop: 06/06/17 17:51 Last Admin: 06/06/17 17:36 Dose: Not Given Metronidazole 500 mg/ Premix 100 mls @ 100 mls/hr IV ONETIME ONE Stop: 06/06/17 17:24 Last Admin: 06/06/17 17:36 Dose: Not Given Vancomycin HCl 1 gm/ Sodium (Chloride) 250 mls @ 167 mls/hr IV ONETIME ONE Stop: 06/06/17 19:29 Vancomycin HCl 1,500 mg/ (Sodium Chloride) 500 mls @ 250 mls/hr IV Q8H [facility] Last Admin: 06/07/17 03:10 Dose: 250 mls/hr Iopamidol (Isovue Multipack-370 (76%)) 100 ml IVPUSH ONETIME STA Stop: 06/06/17 14:12 Last Admin: 06/06/17 14:17 Dose: 100 ml Ketorolac Tromethamine (Toradol) 30 mg IVPUSH ONETIME ONE Stop: 06/06/17 13:00 Last Admin: 06/06/17 13:09 Dose: 30 mg Lidocaine (Xylocaine-Mpf 2%) Confirm Administered Dose 5 ml .ROUTE .STK-MED ONE Stop: 06/06/17 18:10 Morphine Sulfate (Morphine) 4 mg IVPUSH Q4H PRN PRN Reason: severe pain (7-10/10) Ondansetron HCl (Zofran) Confirm Administered Dose 4 mg .ROUTE .STK-MED ONE Stop: 06/06/17 18:37 Propofol (Diprivan 20 Ml) Confirm Administered Dose 200 mg .ROUTE .STK-MED ONE Stop: 06/06/17 18:08 - Problem List & Annotations (1) Hepatitis C SNOMED Code(s): 46304607 Code(s): B19.20 - UNSPECIFIED VIRAL HEPATITIS C WITHOUT HEPATIC COMA Status : Acute Priority: Low Current Visit: Yes Qualifiers: Viral hepatitis chronicity: unspecified (2) Cellulitis SNOMED Code(s): 358410057 Code(s): L03.90 - CELLULITIS, UNSPECIFIED Status: Acute Priority: High Current Visit: Yes Qualifiers: Site of cellulitis: buttock Qualified Code(s): L03.317 - Cellulitis of buttock (3) Perirectal abscess SNOMED Code(s): 27234024 Code(s): K61.1 - RECTAL ABSCESS Status: Resolved Priority: High Current Visit: Yes (4) Hx of intravenous drug use, in remission SNOMED Code(s): 60665363633736270, 13242258928469660 Code(s): Z87.898 - PERSONAL HISTORY OF OTHER SPECIFIED CONDITIONS Status: Chronic Priority: Low Current Visit: Yes - My Orders Last 24 Hours: Active Orders 24 hr Category Date Time Status Patient Status [ADT] Stat ADT 06/06/17 17:49 Active Bradycardia-Neuroaxis [employer] [RC] ROUTINE Care 06/06/17 18:59 Active Hypertension-Neuroaxis [employer] [RC] ROUTINE Care 06/06/17 18:59 Active Hypotension-Neuroaxis [employer] [RC] ROUTINE Care 06/06/17 18:59 Active Intake and Output [RC] Q12HR Care 06/06/17 17:51 Active May Shower [RC] ASDIRECTED Care 06/06/17 19:16 Active Notify Provider Consults [RC] ASDIRECTED Care 06/06/17 15:46 Active Oxygen Therapy [RC] ASDIRECTED Care 06/06/17 18:59 Active Oxygen Therapy [RC] PRN Care 06/06/17 17:51 Active Oxygen Therapy [RC] PRN Care 06/06/17 19:16 Active RT Aerosol Therapy [RC] ASDIRECTED Care 06/06/17 19:53 Active RT Incentive Spirometry [RC] ASDIRECTED Care 06/06/17 19:40 Active Up ad Aileen [RC] ASDIRECTED Care 06/06/17 17:51 Active Vital Signs [RC] PER UNIT ROUTINE Care 06/06/17 19:16 Active Vital Signs [RC] Q4H Care 06/06/17 17:50 Active Wound Care [RC] ASDIRECTED Care 06/06/17 19:16 Active Consult to Physician [CONS] Stat Cons 06/06/17 15:46 Active Regular Diet [DIET] Diet 06/06/17 Dinner Active BMP [BASIC METABOLIC PANEL,BMP] [CHEM] AM Lab 06/08/17 05:11 Ordered CBC WITH AUTO DIFF [HEME] AM Lab 06/08/17 05:11 Ordered CBC WITH AUTO DIFF [HEME] AM Lab 06/09/17 05:11 Ordered CULTURE ANAEROBIC [RM] Routine Lab 06/06/17 18:52 Results CULTURE BLOOD [BC] Stat Lab 06/06/17 13:59 Received CULTURE BLOOD [BC] Stat Lab 06/06/17 14:20 Received CULTURE WOUND [RM] Routine Lab 06/06/17 18:52 Results GRAM STAIN [RM] Routine Lab 06/06/17 18:52 Results VANCOMYCIN TROUGH [CHEM] Routine Lab 06/07/17 17:00 Ordered Acetaminophen [Tylenol] Med 06/06/17 18:06 Active 650 mg PO Q4H PRN Acetaminophen/HYDROcodone [[place] 325-5 MG] Med 06/06/17 18:05 Active 1 - 2 tab PO Q4H PRN Famotidine [Pepcid] Med 06/06/17 19:16 Active 20 mg PO BID PRN Ibuprofen [Motrin] Med 06/06/17 18:06 Active 400 mg PO Q6H PRN Lactated Ringers [Ringers, Lactated] 1,000 ml Med 06/06/17 17:30 Active IV ASDIRECTED Lactated Ringers [Ringers, Lactated] 1,000 ml Med 06/06/17 19:30 Active IV ASDIRECTED Morphine Med 06/06/17 19:26 Active 2 mg IVPUSH Q2H PRN Ondansetron [Zofran] Med 06/06/17 18:06 Active 4 mg IVPUSH Q4H PRN Piperacillin/Tazobactam [Piperacil-Tazobact] 3.375 gm Med 06/06/17 17:30 Active Sodium Chloride 0.9% [Normal Saline] 50 ml IV Q6H Polyethylene Glycol 3350 [MiraLAX] Med 06/06/17 19:16 Active 17 gm PO DAILY PRN Promethazine [Phenergan] Med 06/06/17 19:16 Active 25 mg IM Q6H PRN Vancomycin 1,500 mg Med 06/06/17 18:00 Active Sodium Chloride 0.9% [Normal Saline] 500 ml IV Q8H Vancomycin Pharmacy to Dose [Pharmacy to Dose - Med 06/06/17 17:30 Active Vancomycin] 1 dose .XX ASDIRECTED Blood Culture x2 Reflex Set [OM.PC] Stat Oth 06/06/17 13:21 Ordered Peripheral IV Discontinue [OM.PC] Per Unit Routine Oth 06/06/17 19:21 Ordered Sequential Compression Device [OM.PC] Per Unit Routine Oth 06/06/17 17:51 Ordered Resuscitation Status Routine Resus Stat 06/06/17 17:47 Ordered Medication Orders Acetaminophen (Tylenol) 650 mg PO Q4H PRN PRN Reason: Pain Last Admin: 06/06/17 22:28 Dose: 650 mg Hydrocodone Bitart/Acetaminophen ([place] 325-5 Mg) 1 - 2 tab PO Q4H PRN PRN Reason: Pain Last Admin: 06/07/17 08:28 Dose: 2 tab Admin: 06/06/17 21:22 Dose: 2 tab Famotidine (Pepcid) 20 mg PO BID PRN PRN Reason: Heartburn Last Admin: 06/06/17 22:28 Dose: 20 mg Lactated Ringer's (Ringers, Lactated) 1,000 mls @ 100 mls/hr IV ASDIRECTED [facility] Last Admin: 06/06/17 17:40 Dose: 100 mls/hr Piperacillin Sod/Tazobactam (Sod 3.375 gm/ Sodium Chloride) 50 mls @ 100 mls/ hr IV Q6H [facility] Last Admin: 06/07/17 05:49 Dose: 100 mls/hr Infusion: 06/06/17 23:38 Dose: 100 mls/hr Admin: 06/06/17 23:08 Dose: 100 mls/hr Infusion: 06/06/17 18:10 Dose: 100 mls/hr Admin: 06/06/17 17:40 Dose: 100 mls/hr Vancomycin HCl 1,500 mg/ (Sodium Chloride) 500 mls @ 250 mls/hr IV Q8H [facility] Last Admin: 06/07/17 07:31 Dose: Not Given Admin: 06/06/17 20:58 Dose: Lactated Ringer's (Ringers, Lactated) 1,000 mls @ 125 mls/hr IV ASDIRECTED [facility] Ibuprofen (Motrin) 400 mg PO Q6H PRN PRN Reason: Pain Last Admin: 06/06/17 23:36 Dose: 400 mg Morphine Sulfate (Morphine) 2 mg IVPUSH Q2H PRN PRN Reason: severe pain (7-10/10) Last Admin: 06/07/17 06:13 Dose: 2 mg Admin: 06/07/17 00:57 Dose: 2 mg Ondansetron HCl (Zofran) 4 mg IVPUSH Q4H PRN PRN Reason: Nausea Polyethylene Glycol (Miralax) 17 gm PO DAILY PRN PRN Reason: Constipation Promethazine HCl (Phenergan) 25 mg IM Q6H PRN PRN Reason: Nausea Vancomycin HCl (Pharmacy To Dose - Vancomycin) 1 dose .XX ASDIRECTED [facility] - Plan Plan (Free Text/Narrative):: Patient seen and examined with Dr. Wallace. I agree with his assessment and plan.
[2017-06-07] MEDS: Acetaminophen/HYDROcodone 325-5 MG Tab PO PRN ×2 (08:28→13:04)
--- NOTE | 2017-06-07 08:48 | PCM48HPAN ---
Post Anesthesia Note - EVALUATION WITHIN 48HRS OF ANESTHETIC Vital Signs in Normal Range: Yes Patient Participated in Evaluation: Yes Respiratory Function Stable: Yes (still wheezing mostly on left, oxygen levels stable) Airway Patent: Yes Cardiovascular Function Stable: Yes Hydration Status Stable: Yes Pain Control Satisfactory: Yes Nausea and Vomiting Control Satisfactory: Yes Mental Status Recovered: Yes Pulse Rate: 104 Resp Rate: 18 Temperature: 37.3 C Blood Pressure: 126/64 - COMMENTS/OBSERVATIONS Free Text/Narrative:: Patient receiving albuterol neb treatments while here. will have inhaler for home use per patient. discussed possibility for aspiration and signs and symptoms, and coming to emergency room if he suspects any breathing problems, pain with breathing, fevers. Patient admits to severe reflux that wakes him up at night. discussed seeking treatment for GERD.
--- NOTE | 2017-06-07 09:28 | PCM.PN ---
- General Info Date of Service: 06/07/17 Admission Dx/Problem (Free Text): Admission Diagnosis/Problem Admission Diagnosis/Problem Cellulitis and abscess of buttock Subjective Update: Feeling better this morning, pain is 5-6/10 throbbing currently asking for pain medications. No chest pain or SOB. Coughing and wheezing noted a lot after surgery, has improved. Wheezing continues. Functional Status: Reports: Pain Controlled, Tolerating Diet, Ambulating, Urinating - Review of Systems General: Reports: Fever, Malaise HEENT: Reports: No Symptoms. Denies: Headaches, Sore Throat, Rhinitis, Visual Changes Pulmonary: Reports: No Symptoms, Cough, Wheezing. Denies: Shortness of Breath Cardiovascular: Reports: No Symptoms. Denies: Chest Pain, Palpitations, Edema Gastrointestinal: Reports: No Symptoms. Denies: Abdominal Pain, Melena, Nausea , Vomiting Musculoskeletal: Reports: No Symptoms Skin: Reports: Other (incision to R buttocks, painful intermittently.) Neurological: Reports: No Symptoms Psychiatric: Reports: No Symptoms - Patient Data Vitals - Most Recent: Last Vital Signs Temp 99.1 F 06/07/17 08:48 Pulse 104 H 06/07/17 08:48 Resp 18 06/07/17 08:48 BP 126/64 06/07/17 08:48 Pulse Ox 93 L 06/07/17 08:00 Weight - Most Recent: 118.8 kg I&O - Last 24 Hours: Intake & Output 06/06/17 06/07/17 06/07/17 22:59 06:59 14:59 Intake Total 1300 1340 Output Total 600 Balance 1300 740 Lab Results Last 24 Hours: Laboratory Results - last 24 hr 06/06/17 06/06/17 06/07/17 Range/Units 13:05 13:05 05:05 WBC 12.85 H (4.0-11.0) K/uL RBC 4.41 L (4.50-5.90) M/uL Hgb 14.0 (13.0-17.0) g/dL Hct 39.7 (38.0-50.0) % MCV 90.0 (80.0-98.0) fL MCH 31.7 (27.0-32.0) pg MCHC 35.3 (31.0-37.0) g/dL RDW Std Deviation 41.5 (28.0-62.0) fl RDW Coeff of Nuvia 13 (11.0-15.0) % Plt Count 318 (150-400) K/uL MPV 9.40 (7.40-12.00) fL Neut % (Auto) (48.0-80.0) % Lymph % (Auto) (16.0-40.0) % [place] % (Auto) (0.0-15.0) % Eos % (Auto) (0.0-7.0) % Baso % (Auto) (0.0-1.5) % Neut # (Auto) (1.4-5.7) K/uL Lymph # (Auto) (0.6-2.4) K/uL [place] # (Auto) (0.0-0.8) K/uL Eos # (Auto) (0.0-0.7) K/uL Baso # (Auto) (0.0-0.1) K/uL Add Manual Diff YES Neutrophils % (Manual) 73 (48.0-80.0) % Band Neutrophils % 1 % Lymphocytes % (Manual) 20 (16.0-40.0) % Monocytes % (Manual) 5 (0.0-15.0) % Eosinophils % (Manual) 1 (0.0-7.0) % Nucleated RBC % 0.0 /100WBC Absolute Seg Neuts 9.4 H (1.4-5.7) Band Neutrophils # 0.1 Lymphocytes # (Manual) 2.6 H (0.6-2.4) Monocytes # (Manual) 0.6 (0.0-0.8) Eosinophils # (Manual) 0.1 (0.0-0.7) Nucleated RBCs # 0 K/uL Sodium 134 L 138 (136-148) mmol/L Potassium 3.5 4.1 (3.5-5.1) mmol/L Chloride 98 105 (98-107) mmol/L Carbon Dioxide 28.6 25.7 (21.0-32.0) mmol/L BUN 8 10 (7.0-18.0) mg/dL Creatinine 1.0 1.0 (0.8-1.3) mg/dL Est Cr Clr Drug Dosing 114.24 114.24 mL/min Estimated GFR (MDRD) > 60.0 > 60.0 ml/min Glucose 98 101 (74-106) mg/dL Calcium 8.6 8.2 L (8.5-10.1) mg/dL Total Bilirubin 0.6 (0.2-1.0) mg/dL AST 16 (15-37) IU/L ALT 20 (14-63) IU/L Alkaline Phosphatase 69 (46-116) U/L Total Protein 7.7 (6.4-8.2) g/dL Albumin 3.5 (3.4-5.0) g/dL Globulin 4.2 H (2.0-3.5) g/dL Albumin/Globulin Ratio 0.8 L (1.3-2.8) 06/07/17 Range/Units 05:05 WBC 14.99 H (4.0-11.0) K/uL RBC 4.14 L (4.50-5.90) M/uL Hgb 12.9 L (13.0-17.0) g/dL Hct 38.3 (38.0-50.0) % MCV 92.5 (80.0-98.0) fL MCH 31.2 (27.0-32.0) pg MCHC 33.7 (31.0-37.0) g/dL RDW Std Deviation 43.1 (28.0-62.0) fl RDW Coeff of Nuvia 13 (11.0-15.0) % Plt Count 279 (150-400) K/uL MPV 10.00 (7.40-12.00) fL Neut % (Auto) 74.5 (48.0-80.0) % Lymph % (Auto) 13.3 L (16.0-40.0) % [place] % (Auto) 11.3 (0.0-15.0) % Eos % (Auto) 0.7 (0.0-7.0) % Baso % (Auto) 0.2 (0.0-1.5) % Neut # (Auto) 11.2 H (1.4-5.7) K/uL Lymph # (Auto) 2.0 (0.6-2.4) K/uL [place] # (Auto) 1.7 H (0.0-0.8) K/uL Eos # (Auto) 0.1 (0.0-0.7) K/uL Baso # (Auto) 0.0 (0.0-0.1) K/uL Add Manual Diff Neutrophils % (Manual) (48.0-80.0) % Band Neutrophils % % Lymphocytes % (Manual) (16.0-40.0) % Monocytes % (Manual) (0.0-15.0) % Eosinophils % (Manual) (0.0-7.0) % Nucleated RBC % 0.0 /100WBC Absolute Seg Neuts (1.4-5.7) Band Neutrophils # Lymphocytes # (Manual) (0.6-2.4) Monocytes # (Manual) (0.0-0.8) Eosinophils # (Manual) (0.0-0.7) Nucleated RBCs # 0 K/uL Sodium (136-148) mmol/L Potassium (3.5-5.1) mmol/L Chloride (98-107) mmol/L Carbon Dioxide (21.0-32.0) mmol/L BUN (7.0-18.0) mg/dL Creatinine (0.8-1.3) mg/dL Est Cr Clr Drug Dosing mL/min Estimated GFR (MDRD) ml/min Glucose (74-106) mg/dL Calcium (8.5-10.1) mg/dL Total Bilirubin (0.2-1.0) mg/dL AST (15-37) IU/L ALT (14-63) IU/L Alkaline Phosphatase (46-116) U/L Total Protein (6.4-8.2) g/dL Albumin (3.4-5.0) g/dL Globulin (2.0-3.5) g/dL Albumin/Globulin Ratio (1.3-2.8) Mello Results Last 24 Hours: Microbiology 06/06/17 18:52 Gram Stain - Preliminary Perirectal Med Orders - Current: Current Medications Acetaminophen (Tylenol) 650 mg PO Q4H PRN PRN Reason: Pain Last Admin: 06/06/17 22:28 Dose: 650 mg Hydrocodone Bitart/Acetaminophen ([place] 325-5 Mg) 1 - 2 tab PO Q4H PRN PRN Reason: Pain Last Admin: 06/07/17 08:28 Dose: 2 tab Famotidine (Pepcid) 20 mg PO BID PRN PRN Reason: Heartburn Last Admin: 06/06/17 22:28 Dose: 20 mg Lactated Ringer's (Ringers, Lactated) 1,000 mls @ 100 mls/hr IV ASDIRECTED [facility] Last Admin: 06/06/17 17:40 Dose: 100 mls/hr Piperacillin Sod/Tazobactam (Sod 3.375 gm/ Sodium Chloride) 50 mls @ 100 mls/ hr IV Q6H [facility] Last Admin: 06/07/17 05:49 Dose: 100 mls/hr Vancomycin HCl 1,500 mg/ (Sodium Chloride) 500 mls @ 250 mls/hr IV Q8H [facility] Last Admin: 06/07/17 07:31 Dose: Not Given Lactated Ringer's (Ringers, Lactated) 1,000 mls @ 125 mls/hr IV ASDIRECTED [facility] Ibuprofen (Motrin) 400 mg PO Q6H PRN PRN Reason: Pain Last Admin: 06/06/17 23:36 Dose: 400 mg Morphine Sulfate (Morphine) 2 mg IVPUSH Q2H PRN PRN Reason: severe pain (7-10/10) Last Admin: 06/07/17 06:13 Dose: 2 mg Ondansetron HCl (Zofran) 4 mg IVPUSH Q4H PRN PRN Reason: Nausea Polyethylene Glycol (Miralax) 17 gm PO DAILY PRN PRN Reason: Constipation Promethazine HCl (Phenergan) 25 mg IM Q6H PRN PRN Reason: Nausea Vancomycin HCl (Pharmacy To Dose - Vancomycin) 1 dose .XX ASDIRECTED [facility] Discontinued Medications Albuterol (Proventil) 2.5 mg NEB QIDRT ONE Stop: 06/06/17 20:01 Last Admin: 06/06/17 20:59 Dose: Not Given Albuterol (Proventil Neb Soln) 2.5 mg NEB ONETIME ONE Stop: 06/06/17 19:51 Last Admin: 06/06/17 20:08 Dose: 2.5 mg Diphenhydramine HCl (Benadryl) Confirm Administered Dose 50 mg .ROUTE .STK-MED ONE Stop: 06/06/17 18:37 Fentanyl (Sublimaze) Confirm Administered Dose 250 mcg .ROUTE .STK-MED ONE Stop: 06/06/17 18:09 Fentanyl (Sublimaze) Confirm Administered Dose 100 mcg .ROUTE .STK-MED ONE Stop: 06/06/17 18:53 Fentanyl (Sublimaze) 50 mcg IVPUSH Q5M PRN PRN Reason: Pain (severe 7-10) Stop: 06/06/17 21:00 Last Admin: 06/06/17 20:26 Dose: 50 mcg Sodium Chloride (Normal Saline) 1,000 mls @ 999 mls/hr IV STAT ONE Stop: 06/06/17 13:48 Last Admin: 06/06/17 13:05 Dose: 999 mls/hr Metronidazole 500 mg/ Premix 100 mls @ 100 mls/hr IV ONETIME ONE Stop: 06/06/17 16:03 Last Admin: 06/06/17 17:36 Dose: Not Given Vancomycin HCl 1 gm/ Sodium (Chloride) 250 mls @ 250 mls/hr IV ONETIME ONE Stop: 06/06/17 16:03 Last Admin: 06/06/17 17:36 Dose: Not Given Vancomycin HCl 1,000 mg/ (Dextrose/Water) 250 mls @ 167 mls/hr IV ONETIME ONE Stop: 06/06/17 17:51 Last Admin: 06/06/17 17:36 Dose: Not Given Metronidazole 500 mg/ Premix 100 mls @ 100 mls/hr IV ONETIME ONE Stop: 06/06/17 17:24 Last Admin: 06/06/17 17:36 Dose: Not Given Vancomycin HCl 1 gm/ Sodium (Chloride) 250 mls @ 167 mls/hr IV ONETIME ONE Stop: 06/06/17 19:29 Vancomycin HCl 1,500 mg/ (Sodium Chloride) 500 mls @ 250 mls/hr IV Q8H [facility] Last Admin: 06/07/17 03:10 Dose: 250 mls/hr Iopamidol (Isovue Multipack-370 (76%)) 100 ml IVPUSH ONETIME STA Stop: 06/06/17 14:12 Last Admin: 06/06/17 14:17 Dose: 100 ml Ketorolac Tromethamine (Toradol) 30 mg IVPUSH ONETIME ONE Stop: 06/06/17 13:00 Last Admin: 06/06/17 13:09 Dose: 30 mg Lidocaine (Xylocaine-Mpf 2%) Confirm Administered Dose 5 ml .ROUTE .STK-MED ONE Stop: 06/06/17 18:10 Morphine Sulfate (Morphine) 4 mg IVPUSH Q4H PRN PRN Reason: severe pain (7-10/10) Ondansetron HCl (Zofran) Confirm Administered Dose 4 mg .ROUTE .STK-MED ONE Stop: 06/06/17 18:37 Propofol (Diprivan 20 Ml) Confirm Administered Dose 200 mg .ROUTE .STK-MED ONE Stop: 06/06/17 18:08 - Exam Quality Assessment: DVT Prophylaxis. No: Supplemental Oxygen General: Alert, Oriented, Cooperative, No Acute Distress Neck: Supple Lungs: Normal Respiratory Effort, Wheezing (throughout). No: Crackles Cardiovascular: Regular Rate, Regular Rhythm GI/Abdominal Exam: Normal Bowel Sounds, Soft, Non-Tender, No Organomegaly, No Distention, No Abnormal Bruit, No Mass, Pelvis Stable Back Exam: Normal Inspection, Full Range of Motion Extremities: Normal Inspection, Normal Range of Motion, Non-Tender, No Pedal Edema, Normal Capillary Refill Wound/Incisions: Drainage (R buttock, varun sutured into place post I&D. Serous drainage noted. induration improving. ), Erythema Improving Psy/Mental Status: Alert, Normal Affect, Normal Mood - Problem List & Annotations (1) Perirectal abscess SNOMED Code(s): 27872255 Code(s): K61.1 - RECTAL ABSCESS Status: Resolved Priority: High Current Visit: Yes (2) Hx of suicide attempt SNOMED Code(s): 846367109, 524561426 Code(s): Z91.5 - PERSONAL HISTORY OF SELF-HARM Status: Chronic Current Visit: Yes (3) Hx of aspiration pneumonitis SNOMED Code(s): 432903404 Code(s): Z87.09 - PERSONAL HISTORY OF OTHER DISEASES OF THE RESPIRATORY SYSTEM Status: Chronic Current Visit: Yes (4) Hx of intravenous drug use, in remission SNOMED Code(s): 52828837365420613, 68550993898784809 Code(s): Z87.898 - PERSONAL HISTORY OF OTHER SPECIFIED CONDITIONS Status: Chronic Priority: Low Current Visit: Yes (5) Asthma SNOMED Code(s): 889439989 Code(s): J45.909 - UNSPECIFIED ASTHMA, UNCOMPLICATED Status: Chronic Current Visit: Yes Qualifiers: Asthma severity: mild Asthma persistence: intermittent Asthma complication type: uncomplicated Qualified Code(s): J45.20 - Mild intermittent asthma, uncomplicated (6) Depression SNOMED Code(s): 42312062 Code(s): F32.9 - MAJOR DEPRESSIVE DISORDER, SINGLE EPISODE, UNSPECIFIED Status: Chronic Current Visit: Yes - Problem List Review Problem List Initiated/Reviewed/Updated: Yes - My Orders Last 24 Hours: My Active Orders 06/06/17 17:30 Lactated Ringers [Ringers, Lactated] 1,000 ml IV ASDIRECTED Piperacillin/Tazobactam [Piperacil-Tazobact] 3.375 gm Sodium Chloride 0.9% [ Normal Saline] 50 ml IV Q6H Vancomycin Pharmacy to Dose [Pharmacy to Dose - Vancomycin] 1 dose .XX ASDIRECTED 06/06/17 17:47 Resuscitation Status Routine 06/06/17 17:49 Patient Status [ADT] Stat 06/06/17 17:50 Vital Signs [RC] Q4H 06/06/17 17:51 Intake and Output [RC] Q12HR Oxygen Therapy [RC] PRN Up ad Aileen [RC] ASDIRECTED Sequential Compression Device [OM.PC] Per Unit Routine 06/06/17 18:05 Acetaminophen/HYDROcodone [[place] 325-5 MG] 1 - 2 tab PO Q4H PRN 06/06/17 18:06 Acetaminophen [Tylenol] 650 mg PO Q4H PRN Ibuprofen [Motrin] 400 mg PO Q6H PRN Ondansetron [Zofran] 4 mg IVPUSH Q4H PRN 06/07/17 17:00 VANCOMYCIN TROUGH [CHEM] Routine 06/08/17 05:11 BMP [BASIC METABOLIC PANEL,BMP] [CHEM] AM CBC WITH AUTO DIFF [HEME] AM 06/09/17 05:11 CBC WITH AUTO DIFF [HEME] AM - Plan Plan:: This 36 year old male admitted for karina-rectal abscess 1. Karina-rectal abscess: Dr. Zamora consulted for I&D last evening. varun in place. Fever noted overnight 103 F, leukocytosis 14,990 today. Will continue Vancomycin and Zosyn now. BC pending. OK to discharge from surgery standpoint, discussed with Dr Zamora. Will monitor this morning, possible DC in afternoon. Outpatient follow up with Dr Zamora, MondayJune 13. 2. Asthma: Wheezing noted this am, encouraged again to stop smoking. Does not have inhaler's at home. Will arrange outpatient follow up for hospital follow up and evaluation of asthma with PCP. VTE prophylaxis: SCDs and ambulation. Dispo: 1-3 days pending improvement.
[2017-06-07] MEDS ORDERED: Albuterol 0.083% 2.5 MG/3 ML Neb Soln NEB SCH (11:00)
[2017-06-07] MEDS: Ibuprofen 400 MG Tab PO PRN (12:04)
[2017-06-07 14:09] VITALS: BP 116/65
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
== END 2017-06-07 15:00 | disposition home or self-care (01) ==
LOC: MW.ED 12:10 → INTOOBSV 15:56 → MW.MS 15:56
PROVIDERS: ADMIT Internal Medicine; ATTEND Internal Medicine
DX: K61.1 Rectal abscess (principal); L03.90 Cellulitis, unspecified; B19.20 Unspecified viral hepatitis C without hepatic coma; F17.210 Nicotine dependence, cigarettes, uncomplicated; R00.0 Tachycardia, unspecified; J45.20 Mild intermittent asthma, uncomplicated; F32.9 Major depressive disorder, single episode, unspecified; K21.9 Gastro-esophageal reflux disease without esophagitis; Z91.5 Personal history of self-harm; Z87.09 Personal history of other diseases of the respiratory system; Z87.898 Personal history of other specified conditions
CPT/HCPCS: 36415; 46040; 74177; 80048; 80053; 85025; 87040; 87070; 87075; 87077; 87205; 94640; 96361; 96374; 99284; A9270; G0378; J1200; J1885; J2270; J2405; J2543; J3010; J3370; J7040; J7050; J7120; Q9967; 00902; 99283; J2704